=== PATIENT | female | born 1985 | race Caucasian/White ===

== ENCOUNTER 2016-07-06 09:51 | Emergency (ER) | payer MEDICAID ==
[~2016-07-06] VITALS: Ht 165.1 cm; Wt 53.0 kg
[2016-07-06 09:58] VITALS: BP 142/88
[2016-07-06] MEDS ORDERED: SODIUM CHLORIDE FLUSH 10ML SYR IVF ONE (11:30)
[2016-07-06] MEDS ORDERED: CHLORDIAZEPOXIDE 25 MG CAPSULE PO PRN (11:30)
[2016-07-06] MEDS ORDERED: SODIUM CHLORIDE 0.9% 1,000ML IVBOLUS ONE (11:30)
[2016-07-06] MEDS ORDERED: PARO10TA24 PO (20:22)
== END 2016-07-06 11:43 | disposition left against medical advice (07) ==
LOC: ED 11:39
DX: F10.129 Alcohol abuse with intoxication, unspecified (principal); Y90.9 Presence of alcohol in blood, level not specified; F10.20 Alcohol dependence, uncomplicated
CPT/HCPCS: 99281

== ENCOUNTER 2016-07-06 20:01 | Emergency (ER) | payer MEDICAID ==
[~2016-07-06] VITALS: Ht 170.2 cm; Wt 45.9 kg
[2016-07-06 20:07] VITALS: BP 124/91
[2016-07-06] MEDS ORDERED: PARO10TA24 PO (20:22)
== END 2016-07-06 21:26 | disposition home or self-care (01) ==
LOC: ED 21:18
DX: S09.90XA Unspecified injury of head, initial encounter (principal); F10.129 Alcohol abuse with intoxication, unspecified; Y09 Assault by unspecified means; Y93.89 Activity, other specified; Y92.89 Other specified places as the place of occurrence of the external cause; Y99.9 Unspecified external cause status
CPT/HCPCS: 36415; 70450; 72125; 80307; 99285

== ENCOUNTER 2016-07-08 10:21 | Emergency (ER) | payer MEDICAID ==
[~2016-07-08] VITALS: Ht 167.6 cm; Wt 60.0 kg
[~2016-07-08 10:21] MED LIST: PARO10TA24 PO
[2016-07-08] MEDS ORDERED: SODIUM CHLORIDE 0.9% 1,000 ML IV ONE (10:40)
[2016-07-08] MEDS ORDERED: SODIUM CHLORIDE 0.9% 1,000ML IVBOLUS ONE (11:00)
[2016-07-08] MEDS ORDERED: THIAMINE 100 MG/ML, 2ML IM ONE (11:00)
[2016-07-08] MEDS ORDERED: PLEASE ENTER HEIGHT AND WEIGHT MC SCH (11:00)
[2016-07-08] MEDS ORDERED: THIAMINE 100 MG/ML, 2ML ONE (12:17)
[2016-07-08 16:57] VITALS: BP 141/85
== END 2016-07-08 17:00 | disposition home or self-care (01) ==
LOC: ED 10:50
DX: F10.220 Alcohol dependence with intoxication, uncomplicated (principal); F32.9 Major depressive disorder, single episode, unspecified; Y90.9 Presence of alcohol in blood, level not specified; Z79.899 Other long term (current) drug therapy
CPT/HCPCS: 36415; 80307; 96360; 96361; 96372; 99285; J3411; J7030

== ENCOUNTER 2016-07-13 18:18 | Emergency (ER) | payer MEDICAID ==
[2016-07-13] MEDS ORDERED: SODIUM CHLORIDE 0.9% 1,000ML IVBOLUS ONE (18:30)
[2016-07-13] MEDS ORDERED: LORazepam 2 MG/ML, 1ML IVPush ONE (18:30)
[2016-07-13] MEDS ORDERED: SODIUM CHLORIDE FLUSH 10ML SYR IVF ONE (18:30)
== END 2016-07-13 18:26 | disposition left against medical advice (07) ==
LOC: ED 18:20
DX: F10.10 Alcohol abuse, uncomplicated (principal)
CPT/HCPCS: 99281

== ENCOUNTER 2016-07-17 13:09 | Emergency (ER) | payer MEDICAID ==
[~2016-07-17] VITALS: Ht 177.8 cm; Wt 60.1 kg
[2016-07-17 13:53] LABS: BLOOD UREA NITROGEN 6 mg/dL (7-18)
[2016-07-17 13:54] LABS: ACETAMINOPHEN < 2 mcg/mL (10-30)
[2016-07-17 18:51] VITALS: BP 109/83
== END 2016-07-17 19:08 | disposition home or self-care (01) ==
LOC: EDBD → MERGE 13:09 → ED 19:02
DX: F10.120 Alcohol abuse with intoxication, uncomplicated (principal); F32.9 Major depressive disorder, single episode, unspecified; F10.20 Alcohol dependence, uncomplicated; Z88.6 Allergy status to analgesic agent; Z88.8 Allergy status to other drugs, medicaments and biological substances
CPT/HCPCS: 36415; 80048; 80307; 80329; 82040; 82140; 85025; 99284; G0480